=== PATIENT | female | born 1980 | race Caucasian/White ===

== ENCOUNTER → 2023-09-24 10:20 | Outpatient (REF) | payer OTHER, SELFPAY | LOC: WDC 10:20 | PROVIDERS: ATTENDING PHYSICIAN Nurse Practitioner Adult Health; FAMILY PHYSICIAN Student in an Organized Health Care Education/Training Program | DX: Z12.31 Encounter for screening mammogram for malignant neoplasm of breast (principal) | CPT/HCPCS: 77063; 77067 ==

== ENCOUNTER 2023-10-04 00:21 | Emergency (ER) | payer OTHER, SELFPAY ==
[2023-10-04 00:21] VITALS: BMI 27.5
[2023-10-04 00:29] VITALS: BP 123/89
--- NOTE | 2023-10-04 00:44 | ED.GENMED ---
History of Present Illness
General
Chief Complaint: Abdominal Pain
Source: patient
Exam Limitations: none
Time Seen by Provider: 10/04/23 00:34
Travel History
Have you had any contact with someone who has COVID-19?: No
Do you have any symptoms of coronavirus? Fever > 100 degrees, chills, cough, shortness of breath, sore throat, loss of taste or smell, muscle aches, or headache?: No
History of Present Illness
History of Present Illness:
This is a 43 year old female that comes in with c/o upper abd pain. States that this has happened 5-6 times in the past. States that she gets this pain in the upper abd at the rib area that goes into her back. States that she feels SOB with the
pain, nausea, vomiting and felt dizzy. States that she has pasta with shrimp for dinner and she was laying down resting when this started. Denies any fever, chills, chest pain, diarrhea, headache, urinary burning.
Past History
Past History
ED Past Medical History: Asthma, Fibromyalgia, GERD, HTN, Hypercholesterolemia, Psychiatric (anxiety, depression, ) and Other (Migraine, IBS, Uterine fibroid)
ED Past Surgical History: Gynecological (Hysterectomy, D&C), Orthopedic (Left knee surgery, Bilateral carpal tunnel), Tonsilectomy and Other (Deviated septum Gastric sleeve)
Social History
Tobacco: Former smoker
Alcohol: Occasional
Personal:
Living: with family
Employment: Employed
Review of Systems
Review of Systems
All Other Systems: ROS reviewed and negative except as documented in HPI and ROS
Constitutional: Reports no symptoms; Denies fever or chills
EENT: Reports no symptoms
Respiratory: Reports trouble breathing (with pain)
Cardiac: Reports no symptoms
ABD/GI: Reports abdominal pain, nausea and vomiting; Denies diarrhea
: Reports no symptoms; Denies dysuria, frequency or urgency
Musculoskeletal: Reports no symptoms
Skin: Reports no symptoms
Neurological: Reports dizzy; Denies headache
Psychiatric: Reports no symptoms
Phy Exam
General Physical Exam
General Presentation: moderate distress
General age: appears stated age
General Skin: warm and dry
General Habitus: normal
General Mental: alert
General Hydration: appears well hydrated
ENT Exam
ENT Exam: TM's normal, pharynx normal and neck supple
Eye Exam
Eye Exam: EOMI
Cardiovascular Exam
Cardiovascular Exam: regular rate/rhythm, no edema, no murmur and normal peripheral pulses
Pulmonary Exam
Pulmonary Exam: lungs clear, no respiratory distress, no rales, chest non tender, no crackles, no rhonchi, no wheezing and no cough
Gastrointestinal Exam
Gastrointestinal Exam: normal bowel sounds, soft, no organomegaly, no pulsatile mass, non distended and tender (Very slight tenderness with palpation epigastric area)
Musculoskeletal Exam
Musculoskeletal Exam: full ROM and no edema
Skin Exam
Skin Exam: normal color, warm/dry, no rash and no petechia
Psychiatric Exam
Psychiatric Exam: normal mood/affect
Course
Orders/Labs/Results
Orders:
Orders
10/04/23 00:42
Pantoprazole [Protonix IV] 40 mg IV NOW STA
Sucralfate Suspension [Carafate Suspension] 1 gm PO NOW STA
US Abdomen Complete/Upper Urgent
Comment:
Reason For Exam: Upper abd pain
10/04/23 00:43
Electrocardiogram (*1) Urgent
Reason for Study: Abdominal Pain
EKG- Treatment ONCE
Test Result ONCE
10/04/23 00:47
HYDROmorphone [Dilaudid] 0.5 mg IV NOW STA
10/04/23 00:51
Complete Blood Count/With Diff Urgent
Comprehensive Metabolic Panel Urgent
HCG, Serum Qualitative Screen Urgent
Lipase Urgent
Troponin I Urgent
10/04/23 00:54
Ketorolac [Toradol] 30 mg IV NOW STA
10/04/23 01:09
0.9% Sodium Chloride 1000 ml [Nss] 1,000 ml IV BOLUS
Abnormal Lab Results
10/04/23
00:51
Absolute Lymphs (auto) 3.5 H 10^3/uL
(1.2-3.4)
Chloride 110 H mmol/L
(98-107)
Glucose 112 H mg/dl
(70-99)
AST 150 H U/L
(14-36)
ALT 69 H U/L
(0-35)
10/04/23 00:51
10/04/23 00:51
Glucose nonfasting. AST/ALT elevation. Troponin <0.012, Lipase normal at 156, HCG negative
Vital Signs
Initial and Last Documented VS:
Initial Vital Signs
Temp Pulse Resp BP Pulse Ox
97.8 F 79 20 123/89 98
10/04/23 00:29 10/04/23 00:29 10/04/23 00:29 10/04/23 00:29 10/04/23 00:29
Last Documented Vital Signs
Temp Pulse Resp BP Pulse Ox
97.8 F 79 20 102/64 99
10/04/23 00:10/04/23 00:29 10/04/23 00:29 10/04/23 01:04 10/04/23 01:04
MDM/Problems Addressed
Differential Diagnosis Includes:
Pancreatitis, Gastritis, Gallbladder disease
MDM/Problems Addressed:
This is a 43 year old female that comes in with c/o upper abd pain. State that this has happened 5-6 times in the past. States that she eat dinner and was laying down resting when she started with pain. States that she is nauseated/vomiting and has
some SOB due to the pain.
Will get labs US and medicate for pain.
Back into see patient. States that she is feeling better but still has some pain. Explained that her US shows she has some mobile gallstones with ductal dilation. Her Blood work shows that she has elevated Liver enzymes. Offered patient admission
but would rather go home. Offered narcotic pain medication while here but refused. Will give patient Protonix and Carafate as this could be gastritis. Patient to follow up with the family doctor to repeat blood work and monitor her Liver enzymes.
Patient denies any history of Hepatitis. Patient to return with fever, increased or changing pain, or any other concerns.
Chronic conditions affecting care:
Gastric sleeve
Acute Exacerbation and/or Progression of Chronic Illness:
NA
*Radiology
Radiology exam reviewed: radiology read reviewed (US night hawk- Several mobile tiny gallstones or sludge within mldly distended gallbladder. NO gallbladder wall thickening or pericholecystic fluid. Negative Irving sign. NO biliary ductal dilation.
Visualized pancreas, gallbladder, kidneys and spleen without acute abnormality. )
*Pulse Oximetry
Patient hypoxic: no
*Critical Care Note
Total Time (30-74mins, 75-104mins- exclusive of procedures): Not Applicable
ED Attending Note
-
Portions of this chart may have been created with voice recognition software.� Occasional wrong word or��sound alike� substitutions may have occurred due to the inherent limitations of voice recognition software.
Discharge Plan
Departure
Patient Disposition: Home (Routine Discharge)
Date of Disposition: 10/04/23
Time of Disposition: 02:07
Patient with high blood pressure during this ER visit?: No
Condition: Good
Covid-19: Not Applicable
Discharge Problem:
Acute upper abdominal pain, Elevated liver enzymes
Instructions: Abdominal Pain
Prescriptions:
New
pantoprazole [Protonix] 40 mg tablet,delayed release (DR/EC)
40 mg PO DAILY Qty: 10 0RF
sucralfate [Carafate] 1 gram tablet
1 g PO ACHS Qty: 40 0RF
Rx Instructions:
30mn-1hour before meals and HS, dissolve in 10ml water, drink
Referrals:
Mo Heath, DO [Family Provider] - Follow up in 2-3 days
Activity Restrictions/Additional Instructions:
As discussed, your blood work shows that your liver enzymes are elevated. Your US shows that you have a few small gallstones that are mobile and some sludge but no dilation of the ducts. This could also be a Gastritis. You have had 2 prescriptions
sent to your Pharmacy. The first is Protonix that you will take daily. The second is for Carafate that you take 30min to 1 hour before meals and at Bedtime. The tablet is large so you can dissolve this is 10ml of water (2 tsp) and drink. Follow up
with the family doctor for repeat labs. IF YOU HAVE INCREASED OR CHANGING PAIN, VOMITING, OR YOU HAVE ANY OTHER CONCERNS PLEASE RETURN TO THE EMERGENCY ROOM.
Interventions
Interventions:
*Risk Screen - Suicide Last Done: 10/04/23 00:29
*General Assessment Last Done: 10/04/23 00:41
*Neglect/Abuse Screening Last Done: 10/04/23 00:29
ED- Fall Risk Assessment Last Done: 10/04/23 01:19
*ED COVID-19 Vaccine History Last Done: 10/04/23 00:29
LA-Iyflxu-Vnxsheccft Assessment Last Done: 10/04/23 00:41
[2023-10-04] MEDS: CARAFATE SUSPENSION 1 GM PO (00:58)
[2023-10-04] MEDS: TORADOL 30 MG IV (00:58)
[2023-10-04] MEDS: PROTONIX IV 40 MG IV (00:59)
[2023-10-04 01:04] VITALS: BP 102/64
[2023-10-04 01:05] LABS: % Basophils 0.5 % (0-2); % Eosinophils 0.9 % (0-6); % Immature Granulocytes 0.5 % (0-0.5); % Lymphocytes 44.1 % (20.5-51.1); Absolute Eosinophils 0.1 10^3/uL (0-0.7); Absolute Lymphocytes 3.5 10^3/uL (1.2-3.4); Absolute Monocytes 0.6 10^3/uL (0.1-0.6); Absolute Neutrophils 3.7 10^3/uL (1.4-6.5); Hematocrit 38.9 % (37.0-47.0); Hemoglobin 13.3 g/dL (12.0-16.0); Mean Corp Hgb Conc. 34.2 g/dL (33.0-37.0); Mean Corpuscular Volume 87.8 fL (81.0-99.0); Mean Platelet Volume 9.5 fL (7.4-10.4); Nucleated Red Blood Cells % 0 %; Platelet Count 280 10^3/uL (130-400); Red Blood Cell Count 4.43 10^6/uL (4.20-5.40); Red Cell Dist. Width 12.2 % (11.5-14.5); White Blood Cell Count 7.9 10^3/uL (4.8-10.8)
[2023-10-04] MEDS: NSS 1000 IV (01:12)
[2023-10-04 01:13] LABS: HCG, Serum Qualitative Screen Negative
[2023-10-04 01:17] LABS: ALT (SGPT) 69 U/L (0-35); AST (SGOT) 150 U/L (14-36); Albumin 4.6 g/dl (3.5-5.0); Alkaline Phosphatase 62 U/L (38-126); Blood Urea Nitrogen 13 mg/dl (7-17); Calcium 9.4 mg/dl (8.4-10.2); Carbon Dioxide 26 mmol/L (22-30); Chloride 110 mmol/L (98-107); Estimated Creatinine Clearance 116 ml/min; Glucose 112 mg/dl (70-99); Lipase 156 U/L (23-300); Potassium 3.6 mmol/L (3.5-5.1); Sodium 140 mmol/L (135-145); Total Bilirubin 1.3 mg/dl (0.2-1.3); Total Protein 7.1 g/dl (6.3-8.2); eGFR > 60.00
[2023-10-04 01:26] LABS: Troponin I < 0.012 ng/ml
[2023-10-04 02:00] VITALS: BP 111/73
== END 2023-10-04 02:32 | disposition home or self-care (01) ==
LOC: EMR 00:21
PROVIDERS: Clinical Nurse Specialist Family Health; EMERGENCY PHYSICIAN Emergency Medicine; FAMILY PHYSICIAN Student in an Organized Health Care Education/Training Program
DX: R10.10 Upper abdominal pain, unspecified (principal); R42 Dizziness and giddiness; R11.2 Nausea with vomiting, unspecified; R74.8 Abnormal levels of other serum enzymes; K80.20 Calculus of gallbladder without cholecystitis without obstruction; Z87.891 Personal history of nicotine dependence
CPT/HCPCS: 99285; 96374; 96375; 96361; 76700; 80053; 83690; 84484; 84703; 85025; 93005

== ENCOUNTER → 2023-10-15 15:14 | Outpatient (REF) | payer OTHER, SELFPAY | LOC: HWRAD 15:14 | PROVIDERS: ATTENDING PHYSICIAN Student in an Organized Health Care Education/Training Program | DX: R10.9 Unspecified abdominal pain (principal) | CPT/HCPCS: 74150 ==

== ENCOUNTER → 2023-11-08 07:50 | Outpatient (REF) | payer OTHER, SELFPAY | LOC: HWRAD 07:50 | PROVIDERS: ATTENDING PHYSICIAN Nurse Practitioner Adult Health; FAMILY PHYSICIAN Student in an Organized Health Care Education/Training Program | DX: R10.2 Pelvic and perineal pain (principal) | CPT/HCPCS: 76830; 76856 ==

== ENCOUNTER 2023-12-04 06:05 | Day surgery (SDC) | payer OTHER, SELFPAY ==
[2023-12-04] VITALS (13 sets, daily range): BP systolic 120–142; BP diastolic 76–91; BMI 26.2
[2023-12-04] MEDS: TYLENOL 1000 MG PO (06:37)
[2023-12-04] MEDS: NORMOSOL-R 1000 IV (06:42)
[2023-12-04] MEDS: TRANSDERM-SCOP 1 PATCH TRANSDERM (07:21)
[2023-12-04] MEDS: EMEND 40 MG PO (07:21)
[2023-12-04] MEDS: COMPAZINE 5 MG IV (09:20)
--- NOTE | 2023-12-04 09:25 | W.SUR.PREOP ---
Pre-Operative Surgical Note
-
I have examined this patient prior to the performance of the scheduled procedure.
The patient's condition is unchanged from the time of the current History and
Physical and the patient is able to undergo the scheduled procedure.
--- NOTE | 2023-12-04 09:25 | W.IMMPOSTOP ---
Surgical Immed Post Op Note
-
Primary Surgeon: Lv Kaiser MD
Assisting Surgeon: None
Pre-op Diagnosis: Biliary colic, incisional hernia
Post-op Diagnosis: Same
Procedure Performed:
1. Laparoscopic cholecystectomy with cholangiogram
2. Primary incisional hernia repair
Anesthesia Type: General
Specimen / Cultures: Gallbladder and contents
Estimated Blood Loss: 7 cc
Complications: None
Operative Findings: Fairly normal-appearing gallbladder with some flimsy adhesions to the overlying duodenum. Critical view of safety obtained prior to a cholangiogram which demonstrated no distal filling defects. During our ductotomy multiple
black gallstones and sludge were milked out of the duct and removed. Patient had a 1.5 cm port site hernia that was repaired primarily.
--- NOTE | 2023-12-04 09:37 | OR.RPT ---
Operative Report
Operative Report
Patient Name: Gemini Ocasio
: 1980
Date of Operation: 12/04/2023
Preoperative Diagnosis: Symptomatic Cholelithiasis, incisional hernia
Postoperative Diagnosis: Same
Procedure(s):
Laparoscopic Cholecystectomy with Cholangiogram
Primary incisional hernia repair
Surgeon(s):
Dr. Kaiser
Front End Loader Operator(s):
None
Anesthesia: General
Estimated Blood Loss: 7 cc
Urine Output: None
Drains/Lines/Implants: None
Specimens:
1. Gallbladder and contents
HPI/Surgical Indications:
This is a 43 year old female with a history of laparoscopic sleeve gastrectomy, hysterectomy who presented to our office with a history of intermittent postprandial right upper quadrant pain as well as supraumbilical pain at a previous port site.
Exam, labs and imaging are consistent with symptomatic cholelithiasis and an incisional port site hernia. Risks/Benefits/Alternatives were discussed at length, and the patient agreed to proceed with surgery.
Findings:
Fairly normal-appearing gallbladder with some flimsy adhesions to the overlying duodenum. A Critical View of Safety was obtained. Cholangiogram showed no filling defects in the biliary system with the Left, Right Anterior, Right posterior hepatic
ducts, CHD, cystic duct and CBD all identified. There was brisk flow of dye into the duodenum. During our ductotomy multiple black gallstones and sludge were milked out of the duct and removed. Patient had a 1.5 cm port site hernia that was
repaired primarily.
Procedure Description:
The patient was brought to the Operating Room and placed in the supine position. IV antibiotics were infused and sequential compression devices were confirmed to be on. Following uneventful induction of general endotracheal anesthesia, an
orogastric tube was placed. The abdomen was prepped and draped in the usual sterile fashion. The supraumbilical port site was identified and then an elliptical incision over her prior was made and her prior scar was removed. The dissection was
carried down to the abdominal wall and the incisional hernia was identified. The fascia was cleared up and the hernia sac was incised. We then placed our 12 mm port through this incision. Pneumoperitoneum to 15 mmHg pressure was obtained without
difficulty and we confirmed that no injury had occurred during our entry. The patient was positioned in reverse trendelenberg and rotated with the right side up slightly. Three (3) 5mm trocars were then placed along the right subcostal margin. A
locking grasping forceps was placed on the fundus of the gallbladder where it was then retracted cephalad and to the right. Using appropriate grasping instruments, the peritoneum overlying the triangle of Calot was incised. The cystic
duct/gallbladder junction was identified, dissected circumferentially. The cystic artery was identified medially and was dissected circumferentially. A critical view was obtained. A clip was then placed on the cystic duct/gallbladder junction and
an intraoperative cholangiogram performed using fluoroscopy, which showed good flow of dye into the duodenum. There were no intra- or extrahepatic bile duct filling defects. The biliary anatomy appeared normal. Following completion of the
cholangiogram, the catheter was removed. Two clips were then placed proximally on the cystic duct and the duct divided. Two clips were placed proximally and one distally on the cystic artery, and the artery was divided. Remaining soft tissue
attachments of the gallbladder to the liver bed were then divided using electrocautery. There was some spillage of bile, but no spillage of stones. The gallbladder bed was inspected and excellent hemostasis was obtained. There appeared to be an
accessory structure coming from the port towards the posterior gallbladder which was ligated with two 5 mm clips. The gallbladder was extracted through the 12 mm trocar site using an endocatch bag. The abdomen was again irrigated and excellent
hemostasis was assured. All remaining trocars were then removed and the pneumoperitoneum was evacuated. The 12 mm trocar was removed and the incisional hernia was closed with a running 0 PDS. All trocar sites were closed at the skin level using
4-0 Monocryl followed by Dermabond. Overall, the patient tolerated the procedure well and was taken to the Recovery Room postoperatively in stable condition.
I was the attending physician and performed the procedure with no assistance. I was present for all portions of the case
Lv Kaiser MD
[2023-12-04] MEDS: SUBLIMAZE 50 MCG IV (09:40)
[2023-12-04] MEDS: BENADRYL 25 MG IV (10:07)
--- NOTE | 2023-12-04 12:01 | W.PN.UPDATE ---
Update Note
Progress Note Update
Patient with expected but significant postoperative nausea so far minimally improved on maximal medications. Will give her another 2 hours in STS if she improves okay to go home however orders placed for postprocedural recovery stay if her nausea
remains uncontrolled.
== END 2023-12-04 12:43 | disposition home or self-care (01) ==
LOC: SDS 06:05
PROVIDERS: ATTENDING PHYSICIAN Surgery
DX: K80.10 Calculus of gallbladder with chronic cholecystitis without obstruction (principal); K43.2 Incisional hernia without obstruction or gangrene; K66.0 Peritoneal adhesions (postprocedural) (postinfection)
CPT/HCPCS: 47563; 49591; 88304; 74300; 76000; A4300

== ENCOUNTER → 2023-12-24 14:18 | Outpatient (REF) | payer OTHER, SELFPAY | LOC: HWRAD 14:18 | PROVIDERS: ATTENDING PHYSICIAN Nurse Practitioner Adult Health; FAMILY PHYSICIAN Student in an Organized Health Care Education/Training Program | DX: N83.209 Unspecified ovarian cyst, unspecified side (principal) | CPT/HCPCS: 76830; 76856 ==

== ENCOUNTER → 2024-01-24 10:11 | Outpatient (REF) | payer OTHER, SELFPAY ==
[2024-01-24 19:07] LABS: Hepatitis B Surface Antibody Positive
[2024-01-24 19:27] LABS: Rubella Positive
[2024-01-26 07:42] LABS: Quantiferon Mitogen minus NIL 9.99 IU/mL; Quantiferon NIL 0.01 IU/mL; Quantiferon TB Gold Plus Negative (Negative)
== END ==
LOC: OHS 10:11
PROVIDERS: ATTENDING PHYSICIAN Nurse Practitioner Family
DX: Z23 Encounter for immunization (principal)
CPT/HCPCS: 36415; 86480; 86706; 86735; 86762; 86765; 86787

== ENCOUNTER → 2024-07-04 16:03 | Outpatient (REF) | payer OTHER, SELFPAY | LOC: HWRAD 16:03 | PROVIDERS: ATTENDING PHYSICIAN Chiropractor; FAMILY PHYSICIAN Student in an Organized Health Care Education/Training Program | DX: M54.2 Cervicalgia (principal); M54.6 Pain in thoracic spine | CPT/HCPCS: 72050; 72072 ==

== ENCOUNTER → 2024-09-26 15:38 | Outpatient (REF) | payer OTHER, SELFPAY | LOC: WDC 15:38 | PROVIDERS: ATTENDING PHYSICIAN Nurse Practitioner Adult Health; FAMILY PHYSICIAN Family Medicine | DX: Z12.31 Encounter for screening mammogram for malignant neoplasm of breast (principal) | CPT/HCPCS: 77063; 77067 ==

== ENCOUNTER → 2024-10-07 08:31 | Outpatient (REF) | payer OTHER, SELFPAY | LOC: WDC 08:31 | PROVIDERS: ATTENDING PHYSICIAN Nurse Practitioner Adult Health; FAMILY PHYSICIAN Family Medicine | DX: R92.8 Other abnormal and inconclusive findings on diagnostic imaging of breast (principal) | CPT/HCPCS: 76642 ==

== ENCOUNTER → 2024-10-29 14:32 | Outpatient (REF) | payer OTHER, SELFPAY | LOC: HWEVLT 14:32 | PROVIDERS: ATTENDING PHYSICIAN Radiology Diagnostic Radiology | DX: I83.893 Varicose veins of bilateral lower extremities with other complications (principal) | CPT/HCPCS: 93970 ==

== ENCOUNTER → 2024-11-06 12:41 | Outpatient (REF) | payer OTHER, SELFPAY | LOC: HWRAD 12:41 | PROVIDERS: ATTENDING PHYSICIAN Nurse Practitioner Adult Health; FAMILY PHYSICIAN Student in an Organized Health Care Education/Training Program | DX: R10.2 Pelvic and perineal pain (principal); N83.209 Unspecified ovarian cyst, unspecified side | CPT/HCPCS: 76830; 76856 ==

== ENCOUNTER → 2025-02-04 08:20 | Outpatient (REF) | payer OTHER, SELFPAY | LOC: HWEVLT 08:20 | PROVIDERS: ATTENDING PHYSICIAN Radiology Vascular & Interventional Radiology | DX: I83.891 Varicose veins of right lower extremity with other complications (principal) | CPT/HCPCS: 36478; C1769 ==

== ENCOUNTER → 2025-02-10 07:43 | Outpatient (REF) | payer OTHER, SELFPAY | LOC: HWEVLT 07:43 | PROVIDERS: ATTENDING PHYSICIAN Radiology Vascular & Interventional Radiology | DX: I83.891 Varicose veins of right lower extremity with other complications (principal) | CPT/HCPCS: 93971 ==

== ENCOUNTER → 2025-02-25 08:56 | Outpatient (REF) | payer OTHER, SELFPAY | LOC: HWEVLT 08:56 | PROVIDERS: ATTENDING PHYSICIAN Radiology Vascular & Interventional Radiology | DX: I83.891 Varicose veins of right lower extremity with other complications (principal) | CPT/HCPCS: 93971 ==

== ENCOUNTER → 2025-05-07 07:43 | Outpatient (REF) | payer OTHER, SELFPAY | LOC: WDC 07:43 | PROVIDERS: ATTENDING PHYSICIAN Nurse Practitioner Adult Health; FAMILY PHYSICIAN Student in an Organized Health Care Education/Training Program | DX: R92.8 Other abnormal and inconclusive findings on diagnostic imaging of breast (principal) | CPT/HCPCS: 76642 ==

== ENCOUNTER 2025-05-22 15:51 | Emergency (ER) | payer OTHER, SELFPAY ==
[2025-05-22 15:55] VITALS: BP 137/84
[2025-05-22 16:21] LABS: Hematocrit 38.2 % (37.0-47.0); Hemoglobin 13.1 g/dL (12.0-16.0); Mean Corp Hgb Conc. 34.3 g/dL (33.0-37.0); Mean Corpuscular Volume 89.9 fL (81.0-99.0); Nucleated Red Blood Cells % 0 %; Platelet Count 270 10^3/uL (130-400); Red Cell Dist. Width 12.5 % (11.5-14.5)
[2025-05-22 16:37] LABS: ALT (SGPT) 22 U/L (0-35); AST (SGOT) 25 U/L (14-36); Albumin 4.5 g/dl (3.5-5.0); Alkaline Phosphatase 51 U/L (38-126); Blood Urea Nitrogen 17 mg/dl (7-17); Calcium 9.5 mg/dl (8.4-10.2); Carbon Dioxide 26 mmol/L (22-30); Chloride 106 mmol/L (98-107); Glucose 88 mg/dl (70-99); Potassium 3.8 mmol/L (3.5-5.1); Sodium 137 mmol/L (135-145); Total Protein 7.0 g/dl (6.3-8.2); eGFR > 60.00
[2025-05-22 18:02] VITALS: BP 139/78
--- NOTE | 2025-05-22 18:26 | ED.GENMED ---
History of Present Illness
General
Chief Complaint: Dizziness
Source: patient
Exam Limitations: none
Time Seen by Provider: 05/22/25 18:05
Nursing documentation reviewed up to this point in time: agreed with
History of Present Illness
History of Present Illness:
Patient is a 44-year-old female with past medical history of migraines followed by [facility] neurology presents to the ER for evaluation. Around 2 PM she was sitting at her desk at work and felt off. She reports feeling like she was in a sweat
although she was not sweating, and felt dizzy. She reports when she moved her head she felt like things were almost moving and also reports that she felt that she was moving. She started to have some tunnel vision. She then had some numbness and
tingling to her bilateral arms. She then developed a headache which started in the back and wraps around to her front. Patient had issues previously with dizziness and was diagnosed with possible vestibular migraines by vestibular rehab.
Symptoms have been improving however they lasted for total of 3 hours. An hour and a half she had relatively constant symptoms and then symptoms slowly started to resolve. She feels a little off when she moves her eyes to the left currently and
has a very mild headache.
She is followed by [facility] for migraines and gets Botox every 3 months and her next appointment is in December. She is on a triptan as needed.
Patient denies any trauma denies any recent chiropractor manipulation. Pt has chronic neck issues. No new neck pain associated with symptoms.
Past History
Past History
ED Past Medical History: Asthma, Fibromyalgia, GERD, HTN, Hypercholesterolemia, Psychiatric (anxiety, depression, ) and Other (Migraine, IBS, Uterine fibroid)
ED Past Surgical History: Gynecological (Hysterectomy, D&C), Orthopedic (Left knee surgery, Bilateral carpal tunnel), Tonsilectomy and Other (Deviated septum Gastric sleeve)
Social History
Tobacco: Former smoker
Alcohol: Occasional
Personal:
Living: with family
Employment: Employed
Phy Exam
General Physical Exam
General Presentation: no apparent distress
General age: appears stated age
General Skin: warm and dry
General Habitus: normal
General Mental: alert
General Hydration: appears well hydrated
ENT Exam
ENT Exam: EOMI
Eye Exam
Eye Exam: PERRL, EOMI and other (No nystagmus bilaterally)
Eye Exam General: PERRL: bilateral and EOM intact: bilateral
Pupil Exam: Bilateral: round and reactive
Neurological Exam
Neurological Exam: alert, oriented x3, no motor deficits, no sensory deficits and other (Stable steady gait )
Will Coma Scale
Eye Opening: Spontaneous
Verbal Response: Oriented
Motor Response: Obeys Commands
GCS Total Score: 15
Cerebellar
Cerebellar Function: normal finger to nose
Musculoskeletal Exam
Musculoskeletal Exam: full ROM
Skin Exam
Skin Exam: normal color and warm/dry
Psychiatric Exam
Psychiatric Exam: normal mood/affect
Course
Orders/Labs/Results
Orders:
Orders
05/22/25 16:03
CT Head W/o Iv Contrast Urgent
Comment:
Reason For Exam: dizziness
05/22/25 16:07
Complete Blood Count/With Diff Urgent
Comprehensive Metabolic Panel Urgent
TSH Reflex To Free T4 Urgent
Comment: ADD ON
05/22/25 18:32
Meclizine [Antivert] 25 mg PO NOW STA
05/22/25 18:35
Add On- LAB Urgent
Tests Added?: tsh with reflexive t4
Electrocardiogram (*1) Stat
Reason for Study: Other
Other Reason for Exam: chest pain
Cardiac Monitoring- Treatment ONCE
EKG- Treatment ONCE
05/22/25 16:07
05/22/25 16:07
Vital Signs
Initial and Last Documented VS:
Initial Vital Signs
Temp Pulse Resp BP Pulse Ox
98.0 F 66 19 137/84 100
05/22/25 15:55 05/22/25 15:55 05/22/25 15:55 05/22/25 15:55 05/22/25 15:55
Last Documented Vital Signs
Temp Pulse Resp BP Pulse Ox
98.0 F 45 18 123/87 100
05/22/25 15:55 05/22/25 19:00 05/22/25 19:00 05/22/25 19:00 05/22/25 18:45
Bulk Station Agent consulted with Physician
Bulk Station Agent consulted with physician?: Yes
Name of Physician Consulted: Noh
MDM/Problems Addressed
Differential Diagnosis Includes:
Not limited to BPH, neuritis, vestibular migraine, migraine less likely dissection
MDM/Problems Addressed:
Symptoms are consistent with peripheral type vertigo, possible vestibular migraine. Patient is very well-appearing in no acute distress symptoms have drastically improved since patient has been here in the ER. She is awake alert normal neurologic
exam no nystagmus. She is ambulatory with a steady gait. She had slight vertigo feeling which again was overall significant improved. She was given meclizine which did help her symptoms. She does have a history of migraines and is followed by
[facility]. She had a mild headache however that also improved and she did not want a be treated for that. No other symptoms. No concerning symptoms for dissection or Stroke. case reviewed ED physician stable for discharge home will DC with
meclizine with close outpatient follow-up with her neurologist as well as her family doctor.
Patient has been mildly bradycardic here high 40s to 50s. Prior EKG reviewed heart rate in the 60s .
Normal TSH. No complaints of chest pain shortness of breath. Not likely cause of patient's symptoms. She reports this is lower than her typical however she is asymptomatic with this currently feeling better. Blood pressure stable. She does work
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 Patient was given copies of her EKGs.
*Radiology
Radiology exam reviewed: radiology read reviewed
*Pulse Oximetry
SaO2: 100
Oxygen Mode of Delivery: Room air
Patient hypoxic: no
*EKG
Interpreted by ED Provider?: Yes
Interpretation: abnormal
Heart Rate: 47
Rate: bradycardiac
Rhythm: sinus
QRS Pattern: normal QRS
Ischemia: no ischemia
*Critical Care Note
Total Time (30-74mins, 75-104mins- exclusive of procedures): Not Applicable
ED Attending Note
-
Portions of this chart may have been created with voice recognition software.� Occasional wrong word or��sound alike� substitutions may have occurred due to the inherent limitations of voice recognition software.
Discharge Plan
Departure
Patient Disposition: Home (Routine Discharge)
Date of Disposition: 05/22/25
Time of Disposition: 19:45
Patient with high blood pressure during this ER visit?: Yes
Condition: Fair
Covid-19: Not Applicable
Discharge Problem:
Vertigo
Instructions: Vertigo (a Type of Dizziness) (DC), BLOOD PRESSURE
Prescriptions:
New
meclizine 25 mg tablet
25 mg PO TID PRN (Reason: dizziness) Qty: 10 0RF
No Action
pantoprazole [Protonix] 40 mg tablet,delayed release (DR/EC)
40 mg PO DAILY Qty: 10 0RF
multivitamin Tablet
1 tab PO DAILY
calcium 600 mg Capsule
600 mg PO DAILY
trazodone 50 mg Tablet
50 mg PO HS
rizatriptan 10 mg Tablet
10 mg PO PRN PRN (Reason: MIGRAINES)
lamotrigine [Lamictal] 100 mg Tablet
100 mg PO DAILY
cholecalciferol (vitamin D3) [Vitamin D3] 25 mcg (1,000 unit) Tablet
25 mcg PO DAILY
levocetirizine [Xyzal] 5 mg Tablet
5 mg PO HS
Probiotic 3 billion cell Capsule
3,000 mmu cells PO DAILY
Trintellix 10 mg Tablet
10 mg PO DAILY
Arnuity Ellipta 100 mcg/actuation Blister With Device
1 inh INHALATION BID
mecobalamin (vitamin B12) [B12 Active] 1,000 mcg Tablet,Chewable
1,000 mcg PO Q48H
Adzenys XR-ODT 3.1 mg Tablet,Disinteg Er Biphase 24h
3.1 mg PO DAILY
Emgality Pen 120 mg/mL Pen Injector
120 mg SC QMONTH
Ryaltris 665-25 mcg/spray [place],Non-Aerosol
2 spray INTRANASAL BID
Medical Marijuana
1 dose PO PRN PRN (Reason: SLEEP/ANXIETY)
acetaminophen [acetaminophen] 325 mg tablet
650 mg PO Q6HPRN PRN (Reason: mild pain) Qty: 14 0RF
tramadol 50 mg tablet
25 mg PO Q6HPRN PRN (Reason: severe pain/breakthrough pain) Qty: 8 0RF
ibuprofen 600 mg tablet
600 mg PO Q6H PRN (Reason: pain) Qty: 14 0RF
Referrals:
Pamela Pierce MD [Active, Cardiology]
Danny Wong MD, Resident [Family Provider, General]
Activity Restrictions/Additional Instructions:
As discussed a prescription for meclizine was sent to her pharmacy take as directed. Please follow-up with your neurologist as well as your family doctor for further evaluation of symptoms. Also you are given a copy of your EKG as your heart rate
was mildly low here in the ER. Please follow-up with cardiology.
Return if any worsening of symptoms
Interventions
Interventions:
*Risk Screen - Suicide Last Done: 05/22/25 16:05
*General Assessment Last Done: 05/22/25 18:02
*Neglect/Abuse Screening Last Done: 05/22/25 16:05
*ED- Fall Risk Assessment Last Done: 05/22/25 18:02
*ED COVID-19 Vaccine History Last Done: 05/22/25 18:02
*ED Influenza Vaccine History Last Done: 05/22/25 18:02
ED- Neurological Assessment Last Done: 05/22/25 18:05
ED Swallowing Screen Last Done: 05/22/25 19:24
Discharge Date and Time
Print Language: THAI
[2025-05-22] MEDS: ANTIVERT 25 MG PO (18:41)
[2025-05-22 19:00] VITALS: BP 123/87
[2025-05-22 20:00] VITALS: BP 119/82
== END 2025-05-22 20:10 | disposition home or self-care (01) ==
LOC: EMR 15:51
PROVIDERS: Emergency Medicine; EMERGENCY PHYSICIAN Emergency Medicine; FAMILY PHYSICIAN Student in an Organized Health Care Education/Training Program
DX: R42 Dizziness and giddiness (principal); R00.1 Bradycardia, unspecified; G43.909 Migraine, unspecified, not intractable, without status migrainosus; I10 Essential (primary) hypertension; E78.00 Pure hypercholesterolemia, unspecified; J45.909 Unspecified asthma, uncomplicated; K21.9 Gastro-esophageal reflux disease without esophagitis; F41.9 Anxiety disorder, unspecified; F32.A Depression, unspecified; M79.7 Fibromyalgia; K58.9 Irritable bowel syndrome, unspecified; Z98.84 Bariatric surgery status; Z87.891 Personal history of nicotine dependence
CPT/HCPCS: 99284; 70450; 80053; 84443; 85025; 93005

== ENCOUNTER → 2025-06-16 12:41 | Outpatient (REF) | payer OTHER, SELFPAY | LOC: HWRCS 12:41 | PROVIDERS: ATTENDING PHYSICIAN Student in an Organized Health Care Education/Training Program | DX: Z87.898 Personal history of other specified conditions (principal); R00.1 Bradycardia, unspecified; R53.82 Chronic fatigue, unspecified | CPT/HCPCS: 93306 ==